=== PATIENT | female | born 1930 | race Caucasian/White ===

== ENCOUNTER 2016-08-06 04:26 | Inpatient (IN) | payer MEDICARE ==
--- NOTE | ~2016-08-06 | DS ---
Discharge Summary [place] [id number] [facility] [place]. [address] NAME: KARSTEN COOPER MIGUE : [birth year] STATUS : DIS IN PAT#: [id number] AGE: 85 ADM/REG DATE : 08/07/16 MR#: [id number] REPORT SERV DATE: 08/12/16 DICTATED BY: ROXANA MARIE DATE: 08/10/16 REPORT STATUS : Draft TRANSCRIBED BY: MODL DATE: 08/10/16 ADMISSION DATE: 08/06/2016 DISCHARGE DATE: 08/10/2016 TRAIN OPERATIONS MANAGER: Russell Torres M.D., Orthopedics. DISCHARGE DIAGNOSES: 1. Acute traumatic right ankle fracture after fall. 2. Chronic systolic congestive heart failure with ejection fraction 25-30% and moderate diastolic dysfunction as well. 3. Previous paroxysmal atrial fibrillation. Cardiology does not want her on anticoagulation. 4. Coronary artery disease with previous drug-eluting stent to the LAD and diagonal, 07/2013. 5. Diabetes mellitus type 2 with peripheral neuropathy and A1c 6.9%. 6. Hypertension. 7. B12 deficiency. 8. Chronic nocturnal oxygen requirement, possible obstructive sleep apnea, not proven. 9. Acute blood loss anemia. 10.Chronic leg venous stasis with previous episode cellulitis. 11.Obesity with body mass index of 32.7. 12.Stage 3 chronic kidney disease. HISTORY: The patient lives alone, fell walking to the bathroom one night, had a fractured right ankle, crawled to the phone, got help, came to the emergency room. Orthopedics asked our team to admit the patient to the hospital. The patient was admitted. Orthopedics was consulted. They felt she needed surgical therapy and Dr. Russell Torres on 08/06/2016 did open reduction internal fixation of right bimalleolar ankle fracture. The patient postop did well. She did have some acute blood loss anemia. Her hemoglobin on admission was 11.2. After surgery it stabilized around 8.5. The patient has past history of atrial fibrillation, paroxysmal, requested notes from Dr. Claudio's office. I reviewed them. Their note of 10/02/2015 indicated that they discussed Pradaxa during her previous hospitalization but they felt based on her age and unsteady gait they did not want her on anticoagulation besides dual anti-platelet therapy. The patient does have chronic systolic heart failure. We had not seen an echo with ejection fraction for some time. So while here the patient had a new echocardiogram on 08/07/2016, left atrial size 3.5 cm, left ventricular ejection fraction 25-30%. She has moderate diastolic dysfunction. While here in the hospital, she remained without significant symptoms of heart failure. She appears well compensated. The patient appears to have some B12 deficiency. Her B12 was at the low end of normal. It was 212. So we started supplementing her. The patient states she is chronically on oxygen 2 L at bedtime. She is not sure why. With Discharge Summary [facility] [address] [place]. [address] NAME: KARSTEN COOPER MIGUE : [birth year] STATUS : DIS IN PAT#: [id number] AGE: 85 ADM/REG DATE : 08/07/16 MR#: [id number] REPORT SERV DATE: 08/12/16 DICTATED BY: ROXANA MARIE DATE: 08/10/16 REPORT STATUS : Draft TRANSCRIBED BY: MODFelton DATE: 08/10/16 her weight and BMI of 32.7, I suspect possibly sleep apnea but I do not have any data to prove that. She is felt to need inpatient rehab and then to follow up with Dr. Russell Torres in two weeks. We have asked her rehab to do weekly CBC and BMP. During her time in the hospital here, potassium was normal. Her creatinine stayed stable for her with it ranging between 1.15 and 1.42. This looks fairly consistent with her past numbers. At discharge, her hemoglobin is 8.5. She has been calm and clear and cooperative throughout her time here in the hospital. DISCHARGE MEDICATIONS: Aspirin 81 mg daily (I stopped her Aleve that she was using at home because with her heart failure and chronic kidney disease this would not be advised), Januvia 100 mg daily, Coreg 3.125 mg b.i.d., vitamin B12 2000 mcg daily, Colace 100 mg twice a day, Lasix 20 mg daily, lisinopril 20 mg daily as a chronic medicine, Paxil 20 mg daily, K Dur 20 mEq daily which is a chronic medication but I have told the rehab to hold if her potassium is greater than 4.9, Zocor 20 mg daily, Brilinta 90 mg twice a day, Tylenol 650 q.4 hours p.r.n. mild pain, Dulcolax 15 mg p.o. daily p.r.n. constipation, glucose tablets p.r.n. hypoglycemia, Glucotrol 2.5 mg twice a day with meals, milk of magnesia 30 mL daily p.r.n. constipation, Percocet 5/325 one q.4 hours p.r.n. pain #20 prescribed, no refill. She is planned to go today to [facility]. I spent 25 minutes today with the patient's discharge plan. ANGELICA/LUIS Roxana Marie M.D. / [id number] CC: Jono Boggs M.D. Thomas Brown III, M.D. Steven Stubblefield, M.D., F.A.C.C. [facility]
--- NOTE | ~2016-08-06 | HP ---
History And Physical [facility] [address] [place]. [address] NAME: KARSTEN COOPER MIGUE : [birth year] STATUS : ADM [place] PAT#: [id number] AGE: 85 ADM/REG DATE : 08/06/16 MR#: [id number] REPORT SERV DATE: 08/06/16 DICTATED BY: TEZ SUERO DATE: 08/06/16 REPORT STATUS : Draft TRANSCRIBED BY: MODL DATE: 08/06/16 DATE OF ADMISSION: 08/06/2016 CHIEF COMPLAINT: Mechanical fall at home and right ankle pain. HISTORY OF PRESENT ILLNESS: This is an 85-year-old female, who presents to the emergency room at [facility] with the above-mentioned complaint. History is obtained from the patient, her son and daughter, who are at bedside, and reviewing data available on the [employer] system. According to the patient she was in her bed early this morning when after midnight, she wanted to go to the bathroom, she got up from bed and proceeded towards the bathroom, somehow when she was holding the door, opening it she lost bladder control and subsequently fell down while opening the bathroom door. She fell on her niece and knew that, as soon as she hit the ground she had broke something. She was able to crawl over on her knees to the rocking chair, which she then continued to show towards the telephone and called 911. The patient was brought here for evaluation. In the emergency room, initial workup revealed right ankle bimalleolar fracture. Hospitalist Service is asked to admit her for further evaluation and treatment. At the time of my evaluation, she denied any chest pain, palpitations, or orthopnea. She had no cough, hemoptysis, night sweats, or weight loss. She has not had any fevers, chills, nausea, vomiting, diarrhea, hematemesis, hematochezia or hematuria. No other history of recent travel or exposures. PAST MEDICAL HISTORY: Significant for coronary artery disease with stent placement. Chronic hypoxemia with nocturnal supplemental oxygen and diabetes mellitus type 2. SOCIAL HISTORY: She does not smoke, drink, or use recreational drugs. FAMILY HISTORY: Noncontributory. MEDICATIONS: At home were reviewed by me in the chart today and reordered by me. REVIEW OF SYSTEMS: As in history of present illness. All other systems were reviewed in detail and are quite unremarkable. PHYSICAL EXAMINATION: GENERAL: This is a pleasant 85-year-old, not in any acute distress. HEENT: Her head is atraumatic, normocephalic. She is alert, awake, oriented to time, place, and person. Pupils are equal, reacting to light and accommodating. External ocular muscles are intact. Membranes are moist and pink. Sclerae are nonicteric. NECK: Supple with no jugular venous distention, lymphadenopathy, or thyromegaly. LUNGS: Clear to auscultation with no wheezes, rubs, or crackles. History And Physical [address] [place]. [address] NAME: KARSTEN COOPER MIGUE : [birth year] STATUS : ADM [place] PAT#: [id number] AGE: 85 ADM/REG DATE : 08/06/16 MR#: [id number] REPORT SERV DATE: 08/06/16 DICTATED BY: TEZ SUERO DATE: 08/06/16 REPORT STATUS : Draft TRANSCRIBED BY: LUIS DATE: 08/06/16 HEART: Heart sounds were regular with no murmurs, rubs, or gallops. ABDOMEN: Soft, nontender. Bowel sounds are present. EXTREMITIES: Showed no cyanosis, clubbing or edema. The right lower extremity is very painful to any movement, since placed her on orthopedic splint as well. NEUROLOGIC: Appeared to be grossly intact with no focal sensory or motor deficits. Higher functions appeared intact. VITAL SIGNS: Her temperature today was 98.3, pulse 76, respirations 16 a minute, blood pressure was 151/56, oxygen saturations were 96% breathing 2 L of oxygen via nasal cannula. LABORATORY DATA: Reviewed on the [employer] system showed a sodium of 140, potassium 4.2, chloride 107, CO2 of 24, BUN was 24, creatinine of 1.13, and glucose was 185. Troponin was 0.02 [place] [address], hemoglobin was 7.2, hematocrit 34.1, platelet count was 229,000. Urinalysis was not performed today. Films of the chest x-ray and x-ray of the ankle were reviewed by me on the PACS today and interpreted by me. The chest x-ray did not show any infiltrates or effusions. Normal bony architecture with cardiomegaly. X-ray of the lower extremities showed right distal bimalleolar fracture. IMPRESSION: 1. Mechanical fall. 2. Right ankle pain. 3. Bimalleolar fracture of the right ankle. 4. Coronary artery disease with stent placement. 5. Chronic hypoxemia with nocturnal supplemental oxygen therapy. 6. Diabetes mellitus type 2. PLAN: We will admit the patient to the Hospitalist Service for a non-monitored for a 24-hour observation period. We will start her on pain control very cautiously with intravenous morphine in small doses consult Dr. Russell Torres to see her in the morning from an orthopedic standpoint. We will keep her n.p.o. for now. We will continue her supplemental oxygen therapy while she is here. We will place her on blood sugar control with NovoLog given subcutaneously per sliding scale and check her A1c. She will be on SCDs for DVT prophylaxis while here for now. I have discussed above plans with the patient and her family. Questions were answered and they are agreeable to the above recommendations. Hospitalist Service will be following her during her stay here. /LUIS Tez Suero M.D. / [id number] CC: Jono Harmon M.D.
--- NOTE | ~2016-08-06 | OP ---
Record Of Operation [facility] [address] [place]. [address] NAME: KARSTEN COOPER MIGUE : [birth year] STATUS : ADM [place] PAT#: [id number] AGE: 85 ADM/REG DATE : 08/06/16 MR#: [id number] REPORT SERV DATE: 08/06/16 DICTATED BY: RUSSELL TORRES III DATE: 08/06/16 REPORT STATUS : Draft TRANSCRIBED BY: MODL DATE: 08/06/16 DATE OF PROCEDURE: 08/06/2016 PREOPERATIVE DIAGNOSIS: Right bimalleolar ankle fracture with talar subluxation. POSTOPERATIVE DIAGNOSIS: Right bimalleolar ankle fracture with talar subluxation. SURGICAL PROCEDURE PERFORMED: Open reduction and internal fixation of right bimalleolar ankle fracture with two 4.0 Arthrex malleolar screws and one 4-Hole locking Arthrex spoon plate. CASEWORK SUPERVISOR: Karrie MADRIGAL). SURGEON: Russell Torres M.D. ANESTHESIA: General. ANTIBIOTICS: Ancef 2 g. COMPLICATIONS: None. TOURNIQUET TIME: 46 minutes. CRYSTALLOID: 850 mL. ESTIMATED BLOOD LOSS: 20 mL. DRAINS: None. COMPLICATIONS: None. PROCEDURE IN DETAIL: The patient was brought to the operating room, placed on the table in supine position, and general anesthesia was induced. Ancef 2 g was administered intravenously in the operating room. A pneumatic tourniquet was applied to right upper thigh. The right lower extremity was prepped and draped in the usual sterile fashion. It was exsanguinated with a 6-inch Esmarch, and the tourniquet was inflated to 350 mmHg. Assuring good anesthesia, attention was turned toward the medial side first. A medial curvilinear incision was made over the palpable fragments of the medial malleolus. Abundant blood was encountered. Dissection was carried down to the periosteum, and all blood and soft tissue were removed from the fracture site. A towel clip was used to reduce the medial malleolus, and two threaded K-wires were placed across the fracture site in an oblique fashion. C-arm image was used to confirm nice anatomic reduction of the fracture. These were over drilled with a cannulated drill, and two 4.0 malleolar screws by Arthrex were placed across the fracture site, partially threaded. Good reduction was noted on the C-arm image. The ankle was then internally rotated. Attention was turned toward the lateral side. A lateral incision was made over the distal fibular fracture, which was palpable. Record Of Operation [facility] [place]. [address] NAME: KARSTEN COOPER MIGUE : [birth year] STATUS : ADM [place] PAT#: [id number] AGE: 85 ADM/REG DATE : 08/06/16 MR#: [id number] REPORT SERV DATE: 08/06/16 DICTATED BY: RUSSELL TORRES III DATE: 08/06/16 REPORT STATUS : Draft TRANSCRIBED BY: MODL DATE: 08/06/16 Dissection was carried down through this periosteum to identify the fracture. The fracture was in three pieces with one posterior fragment, one anterior fragment. These were reduced with a towel clip and a 4-Hole locking spoon plate by Arthrex was molded to the lateral side of the fibula. Four locking 3.5 cortical screws were placed in the proximal holes and five 2.7 locking screws were placed distally. Anatomic reduction was noted by the C-arm image in both the AP and lateral planes. Thorough irrigation was carried out. The subcutaneous tissue was closed with inverted 2-0 Vicryl. The skin was closed using willy. A 10 mL of 0.5% Marcaine solution was injected into the medial wound and 10 mL of the similar solution was injected into the lateral wound. A posterior AO splint was applied with the ankle at 90 degrees with side stirrups. Tourniquet was released after 46 minutes. The patient tolerated the procedure well, brought to recovery in satisfactory condition. TB/LUIS Russell Torres III, M.D. / [id number] CC: Jono Boggs M.D.
--- NOTE | ~2016-08-06 | CN ---
Consultation Report [place] [id number] [place]. [address] NAME: KARSTEN COOPER MIGUE : [birth year] STATUS : ADM [place] PAT#: [id number] AGE: 85 ADM/REG DATE : 08/06/16 MR#: [id number] REPORT SERV DATE: 08/06/16 DICTATED BY: RUSSELL TORRES III DATE: 08/06/16 REPORT STATUS : Draft TRANSCRIBED BY: MODL DATE: 08/06/16 CONSULTATION DATE OF CONSULTATION: 08/06/2016 CONSULTING PHYSICIAN: Ericka Faust M.D. ROOM CLERK: Russell Torres M.D. CHIEF COMPLAINT: Right ankle pain. HISTORY: The patient is an 85-year-old elderly white female, who was at home when she fell injuring her right ankle. She presented to the emergency room here at [facility], where x-rays reveal a displaced right bimalleolar ankle fracture. She is admitted for open reduction and internal fixation of her right hip fracture. PAST MEDICAL HISTORY: Significant for coronary artery disease, hypertension, the patient has to use stents. She is on chronic blunt and aspirin therapy PHYSICAL EXAMINATION: HEENT: Normocephalic and atraumatic. Pupils equal, round, and reactive to light and accommodation. Extraocular muscles are intact. NECK: Supple. CHEST: Clear. ABDOMEN: Benign, soft, nontender. Positive bowel sounds. ORTHOPEDIC: Reveals a posterior splint to the right lower extremity. She is comfortable and the extremities does not appear to be any swelling into the toes. Neurologic exam to the right lower extremity is intact. DIAGNOSTIC DATA: X-rays reveal a bimalleolar fracture with some displacement of the talus laterally. PLAN: Open reduction and internal fixation of an unstable right bimalleolar ankle fracture. I appreciate this consultation. We will proceed with surgery. TB/LUIS Russell Torres III, M.D. / [id number] CC: Consultation Report [place] [address] [place]. [address] NAME: KARSTEN COOPER MIGUE : [birth year] STATUS : ADM [place] PAT#: [id number] AGE: 85 ADM/REG DATE : 08/06/16 MR#: [id number] REPORT SERV DATE: 08/06/16 DICTATED BY: RUSSELL TORRES III DATE: 08/06/16 REPORT STATUS : Draft TRANSCRIBED BY: LUIS DATE: 08/06/16 Jono Boggs M.D.
[~2016-08-06 04:26] MED LIST: ALEVE220 MG PO; ASAB PO; AUG BETAMET0.053 EX; BACDS PO; BRILINTA90 MG PO; COREG3 PO; COREG6 PO; FERGON240 MG PO; FLORASTOR250 MG PO; GLUCXL2.5 PO; JANUVIA100 MG PO; KDUR20 PO; KLOR-CON 1010 MEQ PO; L20 PO; LEVAQUIN5T PO; MULTIPLE VIT PO; PAX20 PO; PRIN20 PO; ZOCOR20 PO
[2016-08-06 05:10] LABS: BASOPHILS 0.3 %; BASOPHILS ABSOLUTE 0.04 10/3/uL (0.0-0.16); EOSINOPHILS 3.8 %; EOSINOPHILS ABSOLUTE 0.53 10/3/uL (0.0-0.53); HEMATOCRIT 34.1 % (36.0-48.0); HEMOGLOBIN 11.2 g/dL (12.0-16.0); IMMATURE GRANULOCYTES 0.3 %; IMMATURE GRANULOCYTES ABSOLUTE 0.04 10/3/uL (0.0-0.11); LYMPHOCYTES 9.8 %; LYMPHOCYTES ABSOLUTE 1.35 10/3/uL (0.67-4.30); MEAN CORPUSCULAR HEMOGLOB 30.4 pg (26.0-34.0); MEAN PLATELET VOLUME 10.1 fL (9.2-13.0); MONOCYTES 6.7 %; MONOCYTES ABSOLUTE 0.93 10/3/uL (0.21-1.20); NEUTROPHILS 79.1 %; NEUTROPHILS ABSOLUTE 10.92 10/3/uL (2.02-8.40); PLATELET COUNT 229 10/3/uL (150-400); RBC DISTRIBUTION WIDTH 13.7 % (12.0-16.0); RED CELL COUNT 3.69 10/6/uL (4.0-5.6)
[2016-08-06 05:15] LABS: ER CBC TAT 0 Hrs 09 Mins; MANUAL DIFF NO %; MEAN CORPUS HGB CONC 32.8 g/dL (32.0-36.0); MEAN CORPUSCULAR VOLUME 92.4 fL (80-100); WHITE BLOOD CELLS 13.8 10/3/uL (4.5-10.5)
[2016-08-06 05:20] LABS: INTERNATIONAL NORMAL RATI 1.1 UNITS (-); PARTIAL THROMBO TIME 28.3 SEC (22.5-37.2); PROTIME (NOT ORD) 13.8 SEC (12.0-14.5)
[2016-08-06 05:28] LABS: BUN (BLOOD UREA NITROGEN) 24 MG/DL (6-23); CALCIUM, SERUM 8.8 MG/DL (8.5-10.4); CHEST PAIN PROFILE TAT 0 Hrs 22 Mins; CHLORIDE, SERUM 107 MMOL/L (96-112); CO2 (CARBON DIOXIDE) 24 MMOL/L (24-34); CREATININE 1.31 MG/DL (0.55-1.02); GFR AFRICAN AMERICAN 42 ML/MIN (>=60); GFR NON AFRICAN AMERICAN 37 ML/MIN (>=60); POTASSIUM, SERUM 4.2 MMOL/L (3.5-5.3); SODIUM, SERUM 140 MMOL/L (135-148); TROPONIN I <0.02 NG/ML (<0.05)
[2016-08-06 05:29] LABS: GLUCOSE, SERUM 185 MG/DL (60-99)
[2016-08-06 09:39] LABS: BASOPHILS 0.4 %; BASOPHILS ABSOLUTE 0.04 10/3/uL (0.0-0.16); EOSINOPHILS 4.1 %; EOSINOPHILS ABSOLUTE 0.42 10/3/uL (0.0-0.53); HEMATOCRIT 31.9 % (36.0-48.0); HEMOGLOBIN 10.5 g/dL (12.0-16.0); IMMATURE GRANULOCYTES 0.2 %; IMMATURE GRANULOCYTES ABSOLUTE 0.02 10/3/uL (0.0-0.11); LYMPHOCYTES 15.3 %; LYMPHOCYTES ABSOLUTE 1.59 10/3/uL (0.67-4.30); MEAN CORPUS HGB CONC 32.9 g/dL (32.0-36.0); MEAN CORPUSCULAR VOLUME 91.1 fL (80-100); MEAN PLATELET VOLUME 10.1 fL (9.2-13.0); MONOCYTES 10.4 %; MONOCYTES ABSOLUTE 1.08 10/3/uL (0.21-1.20); NEUTROPHILS 69.6 %; NEUTROPHILS ABSOLUTE 7.22 10/3/uL (2.02-8.40); PLATELET COUNT 214 10/3/uL (150-400); RBC DISTRIBUTION WIDTH 13.9 % (12.0-16.0); WHITE BLOOD CELLS 10.4 10/3/uL (4.5-10.5)
[2016-08-06 09:41] LABS: MANUAL DIFF NO %
[2016-08-06 09:53] LABS: BUN (BLOOD UREA NITROGEN) 22 MG/DL (6-23); CALCIUM, SERUM 8.8 MG/DL (8.5-10.4); CHLORIDE, SERUM 107 MMOL/L (96-112); CO2 (CARBON DIOXIDE) 25 MMOL/L (24-34); CREATININE 1.21 MG/DL (0.55-1.02); GFR AFRICAN AMERICAN 47 ML/MIN (>=60); GFR NON AFRICAN AMERICAN 40 ML/MIN (>=60); GLUCOSE, SERUM 112 MG/DL (60-99); PHOSPHORUS, SERUM 2.7 MG/DL (2.5-4.5); POTASSIUM, SERUM 3.7 MMOL/L (3.5-5.3); SODIUM, SERUM 143 MMOL/L (135-148)
[2016-08-06] MEDS ORDERED: ASAB PO (20:18)
[2016-08-06] MEDS ORDERED: BRILINTA90 MG PO (20:19)
[2016-08-06] MEDS ORDERED: COREG3 PO (20:19)
[2016-08-06] MEDS ORDERED: KDUR20 PO (20:19)
[2016-08-06] MEDS ORDERED: GLUCXL2.5 PO (20:20)
[2016-08-06] MEDS ORDERED: ZOCOR20 PO (20:20)
[2016-08-06] MEDS ORDERED: L20 PO (20:21)
[2016-08-06] MEDS ORDERED: JANUVIA100 MG PO (20:21)
[2016-08-06] MEDS ORDERED: PRIN20 PO (20:21)
[2016-08-06] MEDS ORDERED: ALEVE220 MG PO (20:22)
[2016-08-06] MEDS ORDERED: PAX20 PO (20:22)
[2016-08-07 06:15] LABS: HEMATOCRIT 29.5 % (36.0-48.0); HEMOGLOBIN 9.5 g/dL (12.0-16.0)
[2016-08-08 04:46] LABS: BASOPHILS 0.2 %; BASOPHILS ABSOLUTE 0.03 10/3/uL (0.0-0.16); EOSINOPHILS 1.8 %; EOSINOPHILS ABSOLUTE 0.23 10/3/uL (0.0-0.53); HEMOGLOBIN 8.7 g/dL (12.0-16.0); IMMATURE GRANULOCYTES 0.2 %; IMMATURE GRANULOCYTES ABSOLUTE 0.03 10/3/uL (0.0-0.11); LYMPHOCYTES 10.7 %; LYMPHOCYTES ABSOLUTE 1.35 10/3/uL (0.67-4.30); MEAN CORPUS HGB CONC 32.2 g/dL (32.0-36.0); MEAN CORPUSCULAR HEMOGLOB 30.1 pg (26.0-34.0); MEAN CORPUSCULAR VOLUME 93.4 fL (80-100); MEAN PLATELET VOLUME 10.6 fL (9.2-13.0); MONOCYTES 11.7 %; MONOCYTES ABSOLUTE 1.48 10/3/uL (0.21-1.20); NEUTROPHILS 75.4 %; NEUTROPHILS ABSOLUTE 9.52 10/3/uL (2.02-8.40); PLATELET COUNT 182 10/3/uL (150-400); RBC DISTRIBUTION WIDTH 13.7 % (12.0-16.0); RED CELL COUNT 2.89 10/6/uL (4.0-5.6); WHITE BLOOD CELLS 12.6 10/3/uL (4.5-10.5)
[2016-08-08 04:47] LABS: MANUAL DIFF NO %
[2016-08-08 05:31] LABS: A/G RATIO 0.8 (0.7-1.9); ALBUMIN 2.6 G/DL (3.5-5.0); ALKALINE PHOSPHATASE 73 U/L (45-117); CALCIUM, SERUM 8.7 MG/DL (8.5-10.4); CHLORIDE, SERUM 104 MMOL/L (96-112); CO2 (CARBON DIOXIDE) 24 MMOL/L (24-34); CREATININE 1.15 MG/DL (0.55-1.02); GFR AFRICAN AMERICAN 50 ML/MIN (>=60); GFR NON AFRICAN AMERICAN 43 ML/MIN (>=60); GLOBULIN 3.3 G/DL (2.5-4.1); POTASSIUM, SERUM 3.9 MMOL/L (3.5-5.3); SGOT(AST) 11 U/L (5-40); SODIUM, SERUM 137 MMOL/L (135-148); TOTAL BILIRUBIN 0.6 MG/DL (0-1.2); TOTAL PROTEIN 5.9 G/DL (6.0-8.5)
[2016-08-08 05:37] LABS: BUN (BLOOD UREA NITROGEN) 16 MG/DL (6-23); GLUCOSE, SERUM 165 MG/DL (60-99); SGPT(ALT) 6 U/L (5-65)
[2016-08-09 04:47] LABS: BASOPHILS 0.2 %; BASOPHILS ABSOLUTE 0.02 10/3/uL (0.0-0.16); EOSINOPHILS 3.7 %; EOSINOPHILS ABSOLUTE 0.43 10/3/uL (0.0-0.53); HEMATOCRIT 26.1 % (36.0-48.0); HEMOGLOBIN 8.5 g/dL (12.0-16.0); IMMATURE GRANULOCYTES 0.3 %; IMMATURE GRANULOCYTES ABSOLUTE 0.04 10/3/uL (0.0-0.11); LYMPHOCYTES ABSOLUTE 1.39 10/3/uL (0.67-4.30); MEAN CORPUS HGB CONC 32.6 g/dL (32.0-36.0); MEAN CORPUSCULAR HEMOGLOB 30.7 pg (26.0-34.0); MEAN CORPUSCULAR VOLUME 94.2 fL (80-100); MEAN PLATELET VOLUME 10.3 fL (9.2-13.0); MONOCYTES ABSOLUTE 1.39 10/3/uL (0.21-1.20); NEUTROPHILS 71.8 %; NEUTROPHILS ABSOLUTE 8.32 10/3/uL (2.02-8.40); PLATELET COUNT 186 10/3/uL (150-400); RBC DISTRIBUTION WIDTH 13.5 % (12.0-16.0); RED CELL COUNT 2.77 10/6/uL (4.0-5.6); WHITE BLOOD CELLS 11.6 10/3/uL (4.5-10.5)
[2016-08-09 04:49] LABS: MANUAL DIFF NO %
[2016-08-09 04:57] LABS: BUN (BLOOD UREA NITROGEN) 26 MG/DL (6-23); CALCIUM, SERUM 9.3 MG/DL (8.5-10.4); CHLORIDE, SERUM 106 MMOL/L (96-112); CO2 (CARBON DIOXIDE) 25 MMOL/L (24-34); CREATININE 1.42 MG/DL (0.55-1.02); GFR AFRICAN AMERICAN 38 ML/MIN (>=60); GFR NON AFRICAN AMERICAN 33 ML/MIN (>=60); GLUCOSE, SERUM 157 MG/DL (60-99); POTASSIUM, SERUM 4.1 MMOL/L (3.5-5.3); SODIUM, SERUM 139 MMOL/L (135-148)
== END 2016-08-10 10:25 | DRG 493 ==
LOC: ER 04:26 → 3JRC 06:11
PROVIDERS: Hospitalist; Internal Medicine Pulmonary Disease; Orthopaedic Surgery; Specialist
PROC: 0QHJ04Z Insertion of Internal Fixation Device into Right Fibula, Open Approach (ICD-10-PCS; 2016-08-06)
PROC: 0QHG04Z Insertion of Internal Fixation Device into Right Tibia, Open Approach (ICD-10-PCS; principal; 2016-08-06 14:45)
DX: S82.841A Displaced bimalleolar fracture of right lower leg, initial encounter for closed fracture (principal); I50.22 Chronic systolic (congestive) heart failure; E11.42 Type 2 diabetes mellitus with diabetic polyneuropathy; D62 Acute posthemorrhagic anemia; I11.0 Hypertensive heart disease with heart failure; L03.116 Cellulitis of left lower limb; L03.115 Cellulitis of right lower limb; S93.01XA Subluxation of right ankle joint, initial encounter; W18.30XA Fall on same level, unspecified, initial encounter; I25.10 Atherosclerotic heart disease of native coronary artery without angina pectoris; R09.02 Hypoxemia; E11.9 Type 2 diabetes mellitus without complications; E66.9 Obesity, unspecified; E78.5 Hyperlipidemia, unspecified; E53.8 Deficiency of other specified B group vitamins; Z99.81 Dependence on supplemental oxygen; Y92.013 Bedroom of single-family (private) house as the place of occurrence of the external cause; Z79.82 Long term (current) use of aspirin; Z95.5 Presence of coronary angioplasty implant and graft; Z79.84 Long term (current) use of oral hypoglycemic drugs; Z79.899 Other long term (current) drug therapy; Z68.32 Body mass index [BMI] 32.0-32.9, adult; Z91.81 History of falling
CPT/HCPCS: 71010; 73610-RT; 76000; 80048; 80053; 82607; 82962; 83735; 84100; 84484; 85014; 85018; 85025; 85610; 85730; 93005; 93306; 94640; 97110-GP; 97116-GP; 97162-GP; 97165-GO; 97530-GP; 99285; A9270-GY; C1713; C8929; J0690; J2270; J2710; J3010; Q9957